=== PATIENT | female | born 1960 ===

== ENCOUNTER 2019-03-17 00:15 | Emergency (ER) | payer MEDICARE ==
--- NOTE | 2019-03-17 04:52 | Emergency Department Report ---
ED General Adult HPI - General Chief complaint: Pain General Stated complaint: GENERAL MALAISE Time Seen by Provider: 03/17/19 04:00 Source: patient, EMS Mode of arrival: Ambulatory Limitations: No Limitations - History of Present Illness Initial comments: Patient is a 58-year-old -Irish female with a history of chronic paranoid schizophrenia, chronic back pain and bipolar disorder with depression who presents to the ED for evaluation after he started having low back pain after walking for a long time. Patient states that the pain has been intermittent for the last 2 days despite taking her breasts. Patient denies chest pain, fever, chills, nausea, vomiting, abdominal pain, shortness of breath or vision changes, fall or traumatic injury. MD Complaint: chronic low back pain -: Gradual, week(s) (1) Location: back Radiation: non-radiation Severity scale (0 -10): 2 Quality: aching, dull Consistency: intermittent Improves with: none Worsens with: none Associated Symptoms: denies: confusion, chest pain, cough, diaphoresis, fever/chills, loss of appetite, malaise, shortness of breath Treatments Prior to Arrival: NSAID - Related Data Allergies Allergy/AdvReac Type Severity Reaction Status Date / Time codeine Allergy Unknown Verified 03/17/19 00:20 ED Review of Systems ROS: Stated complaint: GENERAL MALAISE Other details as noted in HPI Comment: All other systems reviewed and negative Constitutional: no symptoms reported, see HPI. denies: chills, fever, malaise Eyes: as per HPI ENT: as per HPI. denies: dental pain, hearing loss, epistaxis Respiratory: no symptoms reported, see HPI. denies: shortness of breath, SOB with exertion, SOB at rest Cardiovascular: as per HPI. denies: chest pain, palpitations, dyspnea on exertion, edema Endocrine: no symptoms reported, see HPI. denies: excessive sweating, increased hunger, increased thirst Gastrointestinal: as per HPI. denies: abdominal pain, nausea, vomiting, diarrhea, constipation, hematemesis Genitourinary: as per HPI. denies: urgency, dysuria, frequency, hematuria Musculoskeletal: as per HPI, back pain. denies: joint swelling, arthralgia Skin: as per HPI. denies: rash, lesions, change in hair/nails Neurological: as per HPI. denies: headache, weakness, numbness, paresthesias Psychiatric: as per HPI. denies: anxiety, depression, auditory hallucinations, visual hallucinations, homicidal thoughts, suicidal thoughts Hematological/Lymphatic: as per HPI ED Past Medical Hx - Past Medical History Previous Medical History?: Yes Hx Hypertension: Yes Hx Diabetes: Yes - Surgical History Past Surgical History?: Yes Additional Surgical History: hyster - Social History Smoking Status: Never Smoker Substance Use Type: None ED Physical Exam - General Limitations: No Limitations General appearance: alert, in no apparent distress - Head Head exam: Present: atraumatic, normocephalic - Eye Eye exam: Present: normal appearance, PERRL, EOMI. Absent: scleral icterus, conjunctival injection Pupils: Present: normal accommodation. Absent: unequal - ENT ENT exam: Present: normal exam, normal orophraynx, mucous membranes moist, TM's normal bilaterally, normal external ear exam - Neck Neck exam: Present: normal inspection, full ROM - Respiratory Respiratory exam: Present: normal lung sounds bilaterally. Absent: respiratory distress, wheezes, rhonchi, chest wall tenderness, decreased breath sounds, prolonged expiratory - Cardiovascular Cardiovascular Exam: Present: regular rate, normal rhythm, normal heart sounds - GI/Abdominal GI/Abdominal exam: Present: soft. Absent: distended, tenderness, normal bowel sounds, hyperactive bowel sounds, hypoactive bowel sounds, organomegaly - Rectal Rectal exam: Present: deferred - Extremities Exam Extremities exam: Present: normal inspection, full ROM. Absent: tenderness, normal capillary refill, pedal edema, joint swelling - Back Exam Back exam: Present: normal inspection, tenderness, muscle spasm, paraspinal tenderness (palpable mild tenderness of the lumbosacral areas). Absent: CVA tenderness (L) - Neurological Exam Neurological exam: Present: alert, oriented X3, CN II-XII intact, normal gait, reflexes normal - Psychiatric Psychiatric exam: Present: normal affect, anxious. Absent: flat affect, manic, homicidal ideation, suicidal ideation - Skin Skin exam: Present: warm, dry, intact, normal color ED Course Vital Signs 03/17/19 00:19 Temperature 98.3 F Pulse Rate 90 Respiratory 18 Rate Blood Pressure 112/72 O2 Sat by Pulse 99 Oximetry - Reevaluation(s) Reevaluation #1: 03/17/19 04:54 Patient is alert and oriented 3 and is not in distress at resting comfortably on the chair and stating that while her pain has resolved and requested to stay longer in the room. Patient is hemodynamically stable with normal pain. Patient advised to return to the ED immediately is symptoms get worse or otherwise follow-up with her primary care physician in 7-10 days for reevaluation. ED Medical Decision Making - Medical Decision Making Patient is alert and oriented 3 and is not in distress at resting comfortably on the chair and stating that while her pain has resolved and requested to stay longer in the room. Patient is hemodynamically stable with normal pain. Patient advised to return to the ED immediately is symptoms get worse or otherwise follow-up with her primary care physician in 7-10 days for reevaluation. - Differential Diagnosis chronic pain, chronic low back Critical care attestation.: If time is entered above; I have spent that time in minutes in the direct care of this critically ill patient, excluding procedure time. ED Disposition Clinical Impression: Chronic pain Qualifiers: Chronic pain type: chronic pain syndrome Qualified Code(s): G89.4 - Chronic pain syndrome Chronic low back pain Qualifiers: Back pain laterality: unspecified Sciatica presence: without sciatica Qualified Code(s): M54.5 - Low back pain; G89.29 - Other chronic pain Schizophrenia Qualifiers: Schizophrenia type: paranoid schizophrenia Qualified Code(s): F20.0 - Paranoid schizophrenia Disposition: DC-01 TO HOME OR SELFCARE Is pt being admited?: No Does the pt Need Aspirin: No Condition: Stable Instructions: Chronic Pain (ED), Schizophrenia (ED), Chronic Back Pain (ED) Additional Instructions: Take your regular medications with food, take Tylenol or ibuprofen as needed for pain and follow up with your primary care physician in 2-3 days for reevaluation. Return to the ED immediately if symptoms get Referrals: PRIMARY CARE, [Primary Care Provider] - 3-5 Days Time of Disposition: 04:59 Print Language: GEORGI[place]
[2019-03-17 05:18] VITALS: BP 140/82
== END 2019-03-17 05:18 | disposition home or self-care (01) ==
LOC: ED 00:15
DX: G89.29 Other chronic pain (principal); M54.5 Low back pain; F20.9 Schizophrenia, unspecified; I10 Essential (primary) hypertension; E11.9 Type 2 diabetes mellitus without complications; Z90.710 Acquired absence of both cervix and uterus; Z88.6 Allergy status to analgesic agent
CPT/HCPCS: 99283